=== PATIENT | female | born 1980 | race African-American/Black ===

== ENCOUNTER 2020-08-22 05:21 | Day surgery (SDC) | payer BC ==
[2020-08-20 17:17] VITALS: BMI 32.5
[2020-08-22] MEDS ORDERED: ONDANSETRON 4 MG/2 ML VIAL ONE (07:41)
[2020-08-22] MEDS ORDERED: DEXAMETHASONE SOD PHOSPHATE 4 MG/1 ML VIAL ONE (07:41)
[2020-08-22] MEDS ORDERED: MIDAZOLAM HCL 2 MG/2 ML SINGLE DOSE VIAL ONE (07:42)
[2020-08-22] MEDS ORDERED: PROPOFOL 20 ML ONE ×2 (07:42)
[2020-08-22] MEDS ORDERED: KETOROLAC TROMETHAMINE 30 MG/1 ML VIAL ONE (08:31)
[2020-08-22] MEDS ORDERED: oxyCODONE HCL 5 MG TABLET PO PRN (09:59)
[2020-08-22] MEDS ORDERED: PROMETHAZINE HCL 25 MG/1 ML VIAL IVPB PRN (09:59)
[2020-08-22] MEDS ORDERED: ACETAMINOPHEN 500 MG TABLET (FP) PO PRN (10:00)
[2020-08-22 12:32] VITALS: BP 123/63; PULSE 88; TEMP 97.7
== END 2020-08-22 12:20 | disposition home or self-care (01) ==
LOC: JASU-SURG 05:21
PROVIDERS: ATTEND Obstetrics & Gynecology Maternal & Fetal Medicine
PROC: 10A07Z6 Abortion of Products of Conception, Vacuum, Via Natural or Artificial Opening (ICD-10-PCS; principal; 2020-08-22 08:00)
DX: O35.8XX0 Maternal care for other (suspected) fetal abnormality and damage, not applicable or unspecified (principal); Q90.9 Down syndrome, unspecified; Z3A.15 15 weeks gestation of pregnancy
CPT/HCPCS: 36415; 84703; 86850; 86900; 86901; 88304-TC; 94760

== ENCOUNTER 2022-10-02 06:10 | Inpatient (IN) | payer BC ==
[2022-10-02 07:09] VITALS: BMI 37.9
[2022-10-02] MEDS ORDERED: ONDANSETRON 4 MG/2 ML VIAL IVPUSH PRN (07:54)
[2022-10-02] MEDS ORDERED: CITRIC ACID/SODIUM CITRATE 30 ML UNIT-DOSE CUP PO ONE (07:59)
[2022-10-02] MEDS: DEXTROSE 5%-LACTATED RINGERS 1,000 ML IV SCH (08:00)
[2022-10-02] MEDS ORDERED: FENTANYL CITRATE/PF 50 MCG/ML VIAL ONE (08:01)
[2022-10-02] MEDS ORDERED: morphine SULFATE (PF) 1 MG/2 ML SYRINGE ONE (08:01)
[2022-10-02] MEDS ORDERED: ONDANSETRON 4 MG/2 ML VIAL ONE (08:03)
[2022-10-02] MEDS ORDERED: ceFAZolin SODIUM 1 GM VIAL ONE (08:03)
[2022-10-02] MEDS ORDERED: SUCCINYLCHOLINE CHLORIDE 200 MG/10 ML SYRINGE ONE (08:49)
[2022-10-02] MEDS ORDERED: PROPOFOL 20 ML ONE (08:49)
[2022-10-02] MEDS ORDERED: OXYTOCIN 10 UNITS/ML VIAL ONE ×2 (08:57→09:33)
[2022-10-02] MEDS: OXYTOCIN 20 UNITS in 0.9% NS 20 UNIT/1,000 ML INFUS.BAG IV SCH ×2 (09:10→23:20)
[2022-10-02 10:18] LABS: CORD BASE EXCESS -4.3 mmol/L (0-2); CORD HCO3 23.1 mmHg (20-29); CORD PCO2 53.3 mmHg (30-78); CORD pH 7.255 (7.14-7.44)
[2022-10-02 10:21] LABS: CORD BASE EXCESS -4.6 mmol/L (0-2); CORD HCO3 22.9 mmHg (20-29); CORD PCO2 52.7 mmHg (30-78); CORD pH 7.256 (7.14-7.44)
[2022-10-02 10:25] LABS: CORD BASE EXCESS -7.6 mmol/L (0-2); CORD HCO3 21.4 mmHg (20-29); CORD PCO2 57.5 mmHg (30-78); CORD pH 7.188 (7.14-7.44)
[2022-10-02 10:28] LABS: CORD BASE EXCESS -5.8 mmol/L (0-2); CORD HCO3 22.5 mmHg (20-29); CORD PCO2 58.9 mmHg (30-78); CORD pH 7.2 (7.14-7.44)
[2022-10-02] MEDS ORDERED: NALOXONE HCL 0.4 MG/ML VIAL ONE (10:34)
[2022-10-02] MEDS ORDERED: ACETAMINOPHEN 325 MG TABLET (FP) PO PRN (10:44)
[2022-10-02] MEDS ORDERED: OXYTOCIN 20 UNITS in 0.9% NS 20 UNIT/1,000 ML INFUS.BAG IV ONE (11:56)
[2022-10-02] MEDS ORDERED: ACETAMINOPHEN INJECTION 100 ML IVPB ONE (11:56)
[2022-10-02] MEDS ORDERED: ACETAMINOPHEN 1000 MG/100 ML BAG IVPB ONE (12:00)
[2022-10-02] MEDS: SIMETHICONE 80 MG TAB.CHEW (FP) PO PRN ×2 (13:57→23:16)
[2022-10-02] MEDS: IBUPROFEN 600 MG TABLET (FP) PO PRN ×2 (13:58→23:16)
[2022-10-02] MEDS ORDERED: oxyCODONE HCL 5 MG TABLET PO PRN (22:44)
[2022-10-03] MEDS: SIMETHICONE 80 MG TAB.CHEW (FP) PO PRN ×2 (06:22→23:17)
[2022-10-03] MEDS: IBUPROFEN 600 MG TABLET (FP) PO PRN ×3 (06:22→16:59)
[2022-10-03 08:27] LABS: BASO % 0.5 % (0-2.0); EOS % 1.7 % (0-4.5); HEMATOCRIT 33.4 % (32.4-45.2); HEMOGLOBIN 11.2 GM/dL (10.7-15.3); LYMPH % 7.3 % (8-40); MCH 30.8 pg (25.7-33.7); MCHC 33.5 g/dl (32.0-36.0); MEAN CELL VOLUME 92.1 fl (80-96); MEAN PLT VOLUME 6.9 fl (7.5-11.1); MONO % 12.9 % (3.8-10.2); NEUT % 77.6 % (42.8-82.8); PLATELET COUNT 246 10^3/uL (134-434); RBC 3.63 M/mm3 (3.60-5.2); RDW 14.3 % (11.6-15.6); WHITE BLOOD COUNT 8.5 K/mm3 (4.0-10.0)
[2022-10-04] MEDS: IBUPROFEN 600 MG TABLET (FP) PO PRN ×3 (03:37→20:30)
[2022-10-04] MEDS: SIMETHICONE 80 MG TAB.CHEW (FP) PO PRN ×2 (08:48→14:03)
[2022-10-04] MEDS: DOCUSATE SODIUM 100 MG CAPSULE (FP) PO SCH ×2 (14:00→21:30)
[2022-10-04] MEDS: DEXTROSE 5%-LACTATED RINGERS 1,000 ML IV SCH (20:54)
[2022-10-04] MEDS: OXYTOCIN 20 UNITS in 0.9% NS 20 UNIT/1,000 ML INFUS.BAG IV SCH (20:55)
[2022-10-04 21:24] VITALS: RESP 17
[2022-10-05] MEDS: DOCUSATE SODIUM 100 MG CAPSULE (FP) PO SCH (06:19)
[2022-10-05] MEDS: SIMETHICONE 80 MG TAB.CHEW (FP) PO PRN (08:24)
[2022-10-05] MEDS: IBUPROFEN 600 MG TABLET (FP) PO PRN (08:24)
[2022-10-05 08:47] LABS: BASO % 0.3 % (0-2.0); EOS % 4.2 % (0-4.5); HEMATOCRIT 32.5 % (32.4-45.2); HEMOGLOBIN 10.5 GM/dL (10.7-15.3); MCH 30.3 pg (25.7-33.7); MCHC 32.4 g/dl (32.0-36.0); MEAN CELL VOLUME 93.6 fl (80-96); MONO % 8.2 % (3.8-10.2); NEUT % 73.3 % (42.8-82.8); PLATELET COUNT 309 10^3/uL (134-434); RBC 3.47 M/mm3 (3.60-5.2); RDW 14.6 % (11.6-15.6); WHITE BLOOD COUNT 6.3 K/mm3 (4.0-10.0)
[2022-10-05 08:49] VITALS: BP 132/84; PULSE 95; TEMP 98.1
== END 2022-10-05 11:15 | disposition home or self-care (01) | DRG 788 ==
LOC: JLDR 06:10 → J3W 12:40
PROVIDERS: ADMIT Obstetrics & Gynecology Maternal & Fetal Medicine; ATTEND Obstetrics & Gynecology Maternal & Fetal Medicine
PROC: 10D00Z1 Extraction of Products of Conception, Low, Open Approach (ICD-10-PCS; principal; 2022-10-02)
DX: O30.043 Twin pregnancy, dichorionic/diamniotic, third trimester (principal); O34.219 Maternal care for unspecified type scar from previous cesarean delivery; Z3A.37 37 weeks gestation of pregnancy; Z37.2 Twins, both liveborn
CPT/HCPCS: 36415; 36600; 82803; 85025; 88304-TC; 88307-TC